=== PATIENT | female | born 1995 | race Caucasian/White ===

== ENCOUNTER 2019-11-30 13:26 | Emergency (ER) | payer OTHER ==
[~2019-11-30] VITALS: Ht 154.9 cm; Wt 107.5 kg
[2019-11-30 13:42] VITALS: Ht 154.9 cm; Wt 107.5 kg
[2019-11-30 18:35] VITALS: BP 134/80
== END 2019-11-30 18:35 | disposition home or self-care (01) ==
LOC: ED 13:26
DX: S83.92XA Sprain of unspecified site of left knee, initial encounter (principal); W01.0XXA Fall on same level from slipping, tripping and stumbling without subsequent striking against object, initial encounter; Y93.89 Activity, other specified; Y92.89 Other specified places as the place of occurrence of the external cause; Y99.8 Other external cause status